=== PATIENT | male | born 1980 | race Caucasian/White ===

== ENCOUNTER 2019-07-26 21:04 | Emergency (ER) | payer SELFPAY ==
[2019-07-26] MEDS ORDERED: CLINDAMYCIN PHOSPHATE 150 MG/ML VIAL IM ONE (21:41)
--- NOTE | 2019-07-26 21:46 | ED.PDOC ---
History of Present Illness - General Chief Complaint: Dental/Mouth Stated Complaint: toothache Time Seen by Provider: 07/26/19 21:34 Source: patient, RN notes reviewed, Vital Signs reviewed Exam Limitations: no limitations - History of Present Illness Initial Comments: patient presents with complaints of a toothache. It started a couple days ago but became progressively worse today. Fever or chills. Pain is throbbing and sharp in nature. Worse with cold drinks are trying to eat. Better when he has a warm compress on his face. They, blurry vision, nausea, vomiting, diarrhea, chest pain, shortness of breath. Timing/Duration: gradual Severity: moderate EENT Location: dental Presenting Symptoms: tooth pain Improving Factors: other - Heat Worsening Factors: cold therapy, movement Associated Symptoms: tooth pain Allergies/Adverse Reactions: Allergies NO KNOWN ALLERGY Allergy (Verified 07/26/19 21:15) Home Medications: Ambulatory Orders Clindamycin HCl [Cleocin] 300 mg PO Q6H #28 capsule 07/26/19 Tramadol HCl [Ultram] 50 mg PO Q6HR #12 tab 07/26/19 Review of Systems - Review of Systems Constitutional: States: no symptoms reported, see HPI EENTM: States: see HPI, mouth pain Respiratory: States: no symptoms reported Cardiology: States: no symptoms reported Gastrointestinal/Abdominal: States: no symptoms reported Genitourinary: States: no symptoms reported Musculoskeletal: States: no symptoms reported Skin: States: no symptoms reported Neurological: States: no symptoms reported Endocrine: States: no symptoms reported Hematologic/Lymphatic: States: no symptoms reported All other Systems: Reviewed and Negative Past Medical History (General) - Patient Medical History Hx Asthma: No Hx Cardiac Disorders: No Hx Hypertension: No Hx Diabetes: No Surgical History: no surgical history - Social History Hx Tobacco Use: Yes Hx Alcohol Use: Yes - former Family Medical History - Family History Mother Family History: Unknown Physical Exam - Physical Exam General Appearance: Alert, No apparent distress, Well Developed, Well Groomed, W ell Hydrated, Well Nourished Eye Exam: bilateral normal, bilateral abnormal EOM Ear Exam: bilateral ear: auricle normal Nasal Exam: normal inspection Throat Exam: pharynx normal, dental tenderness - tooth #6., other - o pharyngeal swelling. No elevation of the floor the mouth. No trismus. Patient with a hole in the gum above tooth #6 where there is a draining abscess. 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 Plan on IM injection of clindamycin and then a prescription for clindamycin and Ultram for pain control. Patient to follow-up with his dentist next week. I discussed the plan of care with the patient he voices understanding and agreement. Markie Butt M.D. #[id number] 07/26/19 21:48 Departure - Departure Clinical Impression: Dental abscess, Dental caries Time of Disposition: 21:49 Disposition: Discharge to Home or Self Care Condition: Good Departure Forms: ED Discharge - Pt. Copy, Patient Portal Self Enrollment Instructions: DI for Dental Pain, Dental Pain (DC) Prescriptions: Tramadol HCl [Ultram] 50 mg PO Q6HR #12 tab Clindamycin HCl [Cleocin] 300 mg PO Q6H #28 capsule Home Medications: Ambulatory Orders Clindamycin HCl [Cleocin] 300 mg PO Q6H #28 capsule 07/26/19 Tramadol HCl [Ultram] 50 mg PO Q6HR #12 tab 07/26/19
[2019-07-26 22:15] VITALS: BP 140/96; TEMP 99.4; O2SAT 96
== END 2019-07-26 22:07 | disposition home or self-care (01) ==
LOC: ER 21:04
DX: K04.7 Periapical abscess without sinus (principal); K02.9 Dental caries, unspecified; Z87.891 Personal history of nicotine dependence